=== PATIENT | male | born 1985 | race Caucasian/White ===

== ENCOUNTER 2019-04-30 18:15 | Emergency (ER) | payer OTHER ==
[~2019-04-30] VITALS: Ht 144.8 cm; Wt 62.6 kg
[~2019-04-30 18:15] MED LIST: Zofran Odt4 MG SL
== END 2019-04-30 19:26 | disposition home or self-care (01) ==
LOC: ER 18:15
DX: J18.9 Pneumonia, unspecified organism (principal); J06.9 Acute upper respiratory infection, unspecified; Q90.9 Down syndrome, unspecified
CPT/HCPCS: 99282